=== PATIENT | male | born 1995 | race Caucasian/White ===

== ENCOUNTER 2024-11-09 09:54 | Emergency (ER) | payer SELFPAY ==
--- NOTE | ~2024-11-09 | XR_ITS ---
XR toe 1st RT min 2V Ordering provider: Yoan Saba APRN History: . crush injury 1 week ago, prox pain . Comparison: None. FINDINGS: BONES: No acute fracture or dislocation. JOINT SPACES: Normal. SOFT TISSUES: Normal. IMPRESSION: No acute osseous abnormality. Reviewed, dictated and finalized at location A.
--- OUTSIDE RECORDS SUMMARY | 2024-11-09 10:00 | XMS_ITS | Clinical Summary ---
Author Organization [address] Address [address] [place] [address] Care Team Providers Care Director Case Name Role Phone Unknown, Notinfile Primary Care Provider Unavail able No, Physician Unavailable Allergies No known active allergies Medications ibuprofen (ADVIL,MOTRIN) 600 mg tablet Take 1 tablet (600 mg total) by mouth every 6 (six) hours as needed for pain 30 tablet 01/19/2019 Active Active Problems Problem Noted Date Diagnosed Date Uvulitis 03/03/2021 Pharyngitis 03/03/2021 Chemical exposure 03/03/2021 Surgical History Surgery Date Site/Laterality Comments TONSILLECTOMY Medical History Medical History Date Comments Abscess Family History Medical History Relation Name Comments No Known Problems Brother No Known Problems Daughter No Known Problems Father No Known Problems Mother No Known Problems Other No Known Problems Sister No Known Problems Son Relation Name Status Comments Brother Daughter Father Mother Other Sister Son Social History Tobacco Use Types Packs/Day Years Used Date Smoking Tobacco: Every Day Smokeless Tobacco: Never Alcohol Use Standard Drinks/Week Comments Yes 0 (1 standard drink = 0.6 oz pur e alcohol) social Personal Safety Answer Date Recorded Getting School Help Needed Not on file 06/22 Sex and Gender Information Value Date Recorded Sex Assigned at Not on file 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 Gender Identity Not on file Sexual Orientation Not on file Obstetrics History Last Filed Vital Signs Vital Sign Reading Time Taken Comments Blood Pressure 166/71 03/03/2021 12:46 PM CDT Pulse 99 03/03/2021 12:46 PM CDT Temperature 37 C (98.6 F) 03/03/2021 12:46 PM CDT Respiratory Rate 18 03/03/2021 12:46 PM CDT Oxygen Saturation 97% 03/03/2021 12:46 PM CDT Inhaled Oxygen Concentration - - Weight 75.8 kg (167 lb) 03/03/2021 12:46 PM CDT Height 170.2 cm (5' 7) 12/15/2019 1:28 AM CDT Body Mass Index 26.16 12/15/2019 1:28 AM CDT Plan of Treatment Not on file Insurance [facility] Care Teams Director Case Relationship Specialty Start Date End Date Unknown, Notinfile PCP - General 02/20/23 No, Physician 02/20/23
--- OUTSIDE RECORDS SUMMARY | 2024-11-09 10:00 | XMS_ITS | Referral Summary ---
Author Organization [address] Address [address] [place] [address] Care Team Providers Care Department Helper Name Role Phone Unknown, Notinfile Primary Care Provider Unavail able No, Physician Unavailable Allergies No known active allergies Medications ibuprofen (ADVIL,MOTRIN) 600 mg tablet Take 1 tablet (600 mg total) by mouth every 6 (six) hours as needed for pain 30 tablet 01/19/2019 Active Active Problems Problem Noted Date Diagnosed Date Uvulitis 03/03/2021 Pharyngitis 03/03/2021 Chemical exposure 03/03/2021 Social History Tobacco Use Types Packs/Day Years [...] on file 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
[2024-11-09 10:01] VITALS: BP 132/73; PULSE 80; RESP 18; TEMP 36.7; O2SAT 100
--- NOTE | 2024-11-09 10:28 | ED.LOWEXIN ---
HPI - Extremity Injury (Lower) General Chief Complaint: Extremity Injury, Lower Stated Complaint: right big toe injury Time Seen by Provider: 11/09/24 10:05 Source: patient and RN notes reviewed Mode of arrival: ambulatory Limitations: no limitations History of Present Illness HPI Narrative: 29-year-old male Presents Express Care complaining of injury to right big toe approximate 1 week ago. 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 Patient denies any numbness, tingling or any other injuries. Patient reports pain with ambulating there is right big toe and some swelling. Patient said it was bruised for 3 days but that has subsided. Patient has not taken anything to help with the pain. Patient has a decent significant past medical history. Related Data Home Medications ?Medication ?Instructions ?Recorded ?Confirmed ?Last Taken ?Type No Home Medications 11/09/24 Unknown History Allergies Allergy/AdvReac Type Severity Reaction Status Date / Time No Known Allergies Allergy Unknown Unverified 11/09/24 10:06 Review of Systems Review of Systems: CONSTITUTIONAL: Denies fever, chills, or sweats. EYES: Denies visual changes, redness, or discharge. ENT: Denies rhinorrhea, congestion, sore throat, or otalgia. CARDIOVASCULAR: Denies chest pain, palpitations, or edema. RESPIRATORY: Denies cough or dyspnea. GASTROINTESTINAL: Denies abdominal pain, nausea, vomiting, or diarrhea. GENITOURINARY: Denies dysuria or hematuria. SKIN: Denies rash, wound, or itching. MUSCULOSKELETAL: Denies back pain, joint pain, or myalgia. Positive for right big toe injury and swelling NEUROLOGIC: Denies headache, numbness, or weakness. PSYCHIATRIC: Denies anxiety or depression. All other systems reviewed are negative, except as documented in HPI. PMFSH Comments At the time of my signature, I reviewed and agree with the nursing past medical, surgical, social, and family history. There is no relevant family history pertinent to the patient complaint. Exam Narrative: GENERAL: This is a well-nourished, well-developed adult, in no apparent distress. They are non ill-appearing, nontoxic appearing. HEAD: normocephalic, atraumatic. EYES: Sclera clear/white. Vision is grossly intact. Conjunctiva normal. Extraocular movement intact. EARS: External ears normal Hearing grossly intact. NOSE: External nose normal THROAT: Mucous membranes moist NECK: Neck supple CARDIOVASCULAR: Regular rate and rhythm RESPIRATORY: Respiratory rate normal, respiratory effort nonlabored, no respiratory distress NEURO: awake, alert, and oriented to person, place and time. There were no obvious focal neurologic abnormalities. EXTREMITIES: Right foot: No obvious deformity, injury, bruising, redness. Mild swelling to the right great toe. Nontender through full range of motion. No bony tenderness. Capillary refill less than 3 seconds. Right pedal Pulse 2 +palpable. Normal sensation. Neurovascular status intact distal injury. Patient is able to wiggle his toes. BACK: Nontender without deformity. Course Course Emergency Course: Portions of this record may have been created with voice recognition software Level of Care: Express Care Visit Vital Signs Vital signs: Vital Signs Temperature 98.0 F 11/09/24 10:01 Pulse Rate 80 11/09/24 10:01 Respiratory Rate 18 11/09/24 10:01 Blood Pressure 132/73 11/09/24 10:01 Pulse Oximetry 100 11/09/24 10:01 Oxygen Delivery Room Air 11/09/24 10:01 Temperature 98.0 F 11/09/24 10:01 Pulse Rate 80 11/09/24 10:01 Respiratory Rate 18 11/09/24 10:01 Blood Pressure 132/73 11/09/24 10:01 Pulse Oximetry 100 11/09/24 10:01 Oxygen Delivery Room Air 11/09/24 10:01 Reviewed MDM - Extremity Injury (Lower) MDM Narrative Medical decision making narrative: X-ray of right great toe showed. Discussed physical exam findings. Advised supportive measures and signs/symptoms to go to the ER. Pt is appropriate for outpt treatment and f/u. Differential Diagnosis Differential diagnosis: Likely other (Crush injury, toe sprain, toe fracture, foot fracture) Critical Care Time Critical Care Time Critical Care Time: No Discharge Plan Discharge Clinical Impression: Crush injury of toe Qualifiers: Encounter type: initial encounter Laterality: right Qualified Code(s): S97.101A - Crushing injury of unspecified right toe(s), initial encounter Patient Disposition: Home Condition: Stable Instructions: Crush Injury (ED) Additional Instructions: The x-ray of your right big toe is negative for any fracture or acute findings. Rest and elevate the leg; bear weight as tolerated Apply ice 15-20 minute intervals several times a day Motrin 600mg -800mg every 8 hours, alternate with Tylenol 1000mg every 8 hours as needed Follow up with your primary care provider or sap bpc developer in 1 to 2 weeks if pain is persistent. Patient Language: Persian Prescriptions: No Action No Home Medications Follow-up/Referrals: Ryan Gonzalez DPM [Physician] - Renan Cardozo MD [Physician] - Time of Disposition: 10:47
== END 2024-11-09 10:52 | disposition home or self-care (01) ==
DX: S97.111A Crushing injury of right great toe, initial encounter (principal); W27.8XXA Contact with other nonpowered hand tool, initial encounter
CPT/HCPCS: 73660; 99213; G0463